=== PATIENT | female | born 1970 | race Caucasian/White ===

== ENCOUNTER → 2019-10-05 | Outpatient (CLI) | payer OTHER | LOC: RAD 14:01 | DX: H53.9 Unspecified visual disturbance (principal) | CPT/HCPCS: Q9967 ==

== ENCOUNTER → 2022-05-26 | Outpatient (CLI) | payer OTHER | LOC: MAMMO 08:51 | DX: Z12.31 Encounter for screening mammogram for malignant neoplasm of breast (principal) ==

== ENCOUNTER → 2023-11-15 | Outpatient (CLI) | payer OTHER | LOC: RAD 15:53 | DX: R05.1 Acute cough (principal) ==

== ENCOUNTER → 2024-05-04 | Outpatient (CLI) | payer OTHER | LOC: RAD 14:00 | DX: M51.34 Other intervertebral disc degeneration, thoracic region (principal) ==